=== PATIENT | male | born 1970 | race Caucasian/White ===

== ENCOUNTER 2016-07-21 16:49 | Emergency (ER) | payer OTHER ==
[~2016-07-21] VITALS: Ht 180.3 cm; Wt 91.0 kg
[~2016-07-21 16:49] MED LIST: CLON-412 PO
[2016-07-21 16:51] VITALS: Ht 180.3 cm; Wt 91.0 kg
[2016-07-21] MEDS ORDERED: HYDROmorphONE 1 MG/ML SYG IM STA (17:59)
--- NOTE | 2016-07-21 18:23 | ERD ---
ER Documentation Chief Complaint Date/Time DATE: 07/21/16 TIME: 18:12 Chief Complaint PAIN ALL OVER FROM NECK TO ALL OVER BODY HPI 45-year-old male patient with no significant past medical history presents to the ED complaining of chronic neck and back pain that started 2 years ago. Patient describes the pain as a pinching sensation and shoots down his bilateral upper and lower extremities. 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 Reports that he has performed many radiologic imaging that shows disc bulges and performed nerve conduction studies which show sheath damage. States that this is the same pain that he has experienced over the last 2 years but has worsened over 7 days ago. States that he sustained these injuries from previous injuries from football and being a professional security officer. States that he tried contacting Dr. Catrachito Carranza and wanted to get a consultation with him in the ER since he is affiliated with [facility] since there have been some insurance issues. Patient requested for immediate surgery because he is tired of taking pain medications. He has unable to follow-up with his primary care physician. Reports that his weakness is chronic due to the atrophy of not working out over the years. States that his pain does not feel any different. States that he is taking Percocet, Butrans patches, gabapentin, Sundilac, with slight relief of his symptoms. Denies any new injuries. Denies any saddle anesthesia, urine or bowel incontinence, weakness, chest pain, shortness of breath, abdominal pain, dysuria, urgency, frequency, hematuria, numbness or tingling. ROS All systems reviewed and are negative except as per history of present illness. Medications Home Meds Active Scripts Clonazepam* (Klonopin*) 1 Mg Tablet, 1 MG PO BID, #6 TAB Prov:EDDA GAYLE PA-C 03/15/16 Allergies Allergies: Coded Allergies: No Known Allergy (Unverified , 07/21/16) PMhx/Soc History of Surgery: Yes (thyroidectomy) Hx Psychiatric Problems: Yes (ANXIETY) Hx Miscellaneous Medical Probl: Yes (back pain, cancer) Hx Substance Use: Yes (marijuana) Hx Tobacco Use: No Physical Exam Vitals Vital Signs Date Time Temp Pulse Resp B/P Pulse Ox O2 Delivery O2 Flow Rate FiO2 07/21/16 16:51 98.2 80 20 142/80 98 Physical Exam Const: [id number]-[id number], well-nourished. Distress due to pain. Head: Atraumatic, normocephalic Eyes: Normal Conjunctiva without injection. No purulent discharge. ENT: Normal external ear, nose. Moist oropharynx without tonsillar exudates. Non -erythematous pharynx. Uvula midline. No drooling. No trismus. Neck: No cervical midline tenderness. Full range of motion. No meningismus. No cervical lymphadenopathy. No JVD. Resp: Clear to auscultation bilaterally. No wheezing, rhonchi, rales, or crackles. No accessory muscle use. No retractions. Cardio: Regular rate and rhythm. No murmurs, rubs or gallops. Abd: Soft, nontender, non distended. Normal bowel sounds. No palpable masses. No rebound tenderness. No guarding. Negative McBurney's point. Negative psoas sign. Negative obturator sign. Skin: No petechiae or rashes Back: No midline tenderness. No CVA tenderness. Diffuse tenderness to palpation. Patient did not want to be examined due to the pain. Ext: No cyanosis, or edema. Neur: Awake and alert. Normal gait. Normal coordination. Psych: Normal Mood and Affect Results 24 hrs Current Medications Medications (Trade) Dose Ordered Sig/Tato Route PRN Reason Start Time Stop Time Status Last Admin Dose Admin Hydromorphone HCl (Dilaudid) 1 mg ONCE STAT IM 07/21/16 17:59 07/21/16 18:01 DC Procedures/MDM This is a 45-year-old male patient with no significant past medical history presents to the ED complaining of chronic neck and back pain. Patient is afebrile and nontoxic-appearing. Patient is in distress due to his pain. Patient was given IM Dilaudid here in the ED. Pending patient's improvement from pain medications here in the ED, this patient has been signed off to my colleague, Reagan Sharma PA-C. Denies saddle anesthesia, numbness or tingling , urine or bowel incontinence, new weakness. Low suspicion for cauda equina syndrome, cord compression, nephrolithiasis, aortic aneurysm, aortic dissection , epidural abscess, spinal hematoma, malignancy, pyelonephritis, or other emergent conditions. This case was also discussed with my supervising physician Dr. Huizar who agreed with the management and discharge plan. Follow up with Dr. Catrachito Carranza in 1-2 days. Instructed patient to return to the ED sooner for any worsening symptoms. Patient's questions were answered. Patient understood and agreed with discharge plan. Patient discharged stable. Departure Diagnosis: Primary Impression: Chronic neck pain Additional Impression: Chronic back pain Back pain location: low back pain Back pain laterality: unspecified Sciatica presence: unspecified whether sciatica present Qualified Code: M54.5 - Chronic low back pain, unspecified back pain laterality, with sciatica presence unspecified Condition: Stable Patient Instructions: Managing Chronic Pain: Activity, Managing Chronic Pain: Medications, Managing Chronic Pain: Therapies for Mind and Body, Back Pain ( Acute Or Chronic), Back And Neck Pain, General Referrals: SUZIE MODI MD,LYNN COLBY,ANMOL PEREZ,RG RITCHIE,DALTON CLEMENT,DICK BRUNO,SALVADOR BOYD,KAUSHIK ESCOTO,ANATOLY DUGGAN,LAMBERTO URRUTIA,NAVI ROWAN,BRANDIE BAZAN,LAKESHIA LÓPEZ,CARLA Marques, MD GUERRERO,IN BEV LEMON,ORALIA RAMÍREZ,PAULETTE SANCHEZ,LAMBERTO ALANIZ,WILFREDO AMARAL,DAVID WHEELER,FRANCO CLARKE,[facility] YOU HAVE RECEIVED A MEDICAL SCREENING EXAM AND THE RESULTS INDICATE THAT YOU DO NOT HAVE A CONDITION THAT REQUIRES URGENT TREATMENT IN THE EMERGENCY DEPARTMENT. FURTHER EVALUATION AND TREATMENT OF YOUR CONDITION CAN WAIT UNTIL YOU ARE SEEN IN YOUR DOCTORS OFFICE WITHIN THE NEXT 1-2 DAYS. IT IS YOUR RESPONSIBILITY TO MAKE AN APPOINTMENT FOR [facility]. IF YOU HAVE A PRIMARY DOCTOR --you should call your primary doctor and schedule an appointment IF YOU DO NOT HAVE A PRIMARY DOCTOR YOU CAN CALL OUR PHYSICIAN REFERRAL HOTLINE AT IF YOU CAN NOT AFFORD TO SEE A PHYSICIAN YOU CAN CHOSE FROM THE FOLLOWING [facility] CLINICS [facility] [address] [facility] [address] [facility] [facility] [address] [facility] [address] [facility] [address] [facility]. [facility] [address] [facility]. [facility] YOU HAVE RECEIVED A MEDICAL SCREENING EXAM AND THE RESULTS INDICATE THAT YOU DO NOT HAVE A CONDITION THAT REQUIRES URGENT TREATMENT IN THE EMERGENCY DEPARTMENT. FURTHER EVALUATION AND TREATMENT OF YOUR CONDITION CAN WAIT UNTIL YOU ARE SEEN IN YOUR DOCTORS OFFICE WITHIN THE NEXT 1-2 DAYS. IT IS YOUR RESPONSIBILITY TO MAKE AN APPOINTMENT FOR [facility] CARE. IF YOU HAVE A PRIMARY DOCTOR --you should call your primary doctor and schedule and appointment IF YOU DO NOT HAVE A PRIMARY DOCTOR YOU CAN CALL OUR PHYSICIAN REFERRAL HOTLINE AT . IF YOU CAN NOT AFFORD TO SEE A PHYSICIAN YOU CAN CHOSE FROM THE FOLLOWING [facility] INSTITUTIONS[facility] [address] [place] [address] [facility] [address] [place] [address] [facility] [address] [place] [address] [facility] Urgent Care 7 a.m.- 11 p.m. Every Day of the Week NO APPOINTMENT OR AUTHORIZATION NEEDED SO [facility] Hours: Mon-Fri 9:00 AM - 5:00 PM Additional Instructions: FOLLOW UP WITH Dr. Catrachito Carranza and your neurologist tomorrow for further evaluation and treatment. Return to this facility if you are not improving as expected. DANISHA GARCES PA-C July 21, 2016 18:23
== END 2016-07-21 18:32 | disposition home or self-care (01) ==
LOC: FTE 16:49
DX: M54.2 Cervicalgia (principal); M54.5 Low back pain; Z85.9 Personal history of malignant neoplasm, unspecified
CPT/HCPCS: 96372; J1170; Z7502